=== PATIENT | female | born 1945 | race Caucasian/White ===

== ENCOUNTER → 2017-12-23 08:12 | Outpatient (CLI) | payer MEDICARE, MEDICAID ==
[2013-08-27 08:00] VITALS: BMI 24.2
[~2017-12-23 08:12] MED LIST: AVAPRO150 MG PO; CATAPRES0.1 MG PO; ESTROPIPATE0.75 MG PO; NEXIUM40 MG PO; NORVASC5 MG PO
== END | disposition home or self-care (01) ==
LOC: D.MRI 08:00
DX: R42 Dizziness and giddiness (principal)

== ENCOUNTER → 2018-01-17 08:27 | Outpatient (CLI) | payer MEDICARE, MEDICAID ==
[2013-08-27 08:00] VITALS: BMI 24.2
== END | disposition home or self-care (01) ==
LOC: D.US 08:27
DX: R42 Dizziness and giddiness (principal)

== ENCOUNTER → 2018-08-05 14:44 | Outpatient (CLI) | payer MEDICARE, MEDICAID ==
[2013-08-27 08:00] VITALS: BMI 24.2
== END | disposition home or self-care (01) ==
LOC: D.MAMMO 14:44
PROVIDERS: ATTEND Legal Medicine
DX: Z12.31 Encounter for screening mammogram for malignant neoplasm of breast (principal)

== ENCOUNTER → 2018-08-26 11:02 | Outpatient (CLI) | payer MEDICARE, MEDICAID | END | disposition home or self-care (01) | LOC: D.RAD 11:02 | DX: M25.552 Pain in left hip (principal) ==

== ENCOUNTER 2020-09-30 15:31 | Emergency (ER) | payer MEDICARE, MEDICAID ==
[~2020-09-30] VITALS: Ht 157.5 cm; Wt 59.1 kg
[2020-09-30 15:34] VITALS: BP 168/74; Ht 157.5 cm; Wt 59.1 kg
[2020-09-30] MEDS ORDERED: HYDROCODON-ACE1 EAC7 PO (17:00)
== END 2020-09-30 17:53 | disposition home or self-care (01) ==
LOC: D.ER 15:31
DX: S42.301A Unspecified fracture of shaft of humerus, right arm, initial encounter for closed fracture (principal); S09.90XA Unspecified injury of head, initial encounter; W19.XXXA Unspecified fall, initial encounter; Y93.9 Activity, unspecified; Y92.9 Unspecified place or not applicable; I10 Essential (primary) hypertension

== ENCOUNTER → 2020-10-05 10:09 | Outpatient (CLI) | payer MEDICARE, MEDICAID ==
[2020-09-30 15:34] VITALS: BMI 23.8
[~2020-10-05 10:09] MED LIST changes: +HYDROCODON-ACE1 EAC7 PO
== END | disposition home or self-care (01) ==
LOC: D.CT 10:09
PROVIDERS: ATTEND Clinical Nurse Specialist Family Health
DX: S42.294A Other nondisplaced fracture of upper end of right humerus, initial encounter for closed fracture (principal)